=== PATIENT | female | born 1950 | race Caucasian/White ===

== ENCOUNTER 2017-01-11 07:06 | Emergency (ER) | payer MEDICARE, OTHER ==
[2017-01-11] MEDS ORDERED: MAG HYDROX/AL HYDROX/SIMETH 30 ML UDC PO STA (07:45)
[2017-01-11] MEDS ORDERED: LIDOCAINE VISCOUS 2% 15 ML UDC MM STA (07:45)
[2017-01-11] MEDS ORDERED: PHENobarb/HYOSCY/ATROPINE/SCOP 5 ML SYRINGE PO STA (07:46)
[2017-01-11] MEDS ORDERED: MAG HYDROX/AL HYDROX/SIMETH 30 ML UDC ONE (07:51)
[2017-01-11] MEDS ORDERED: PHENobarb/HYOSCY/ATROPINE/SCOP 5 ML SYRINGE PO ONE (07:51)
[2017-01-11] MEDS ORDERED: LIDOCAINE VISCOUS 2% 15 ML UDC MM ONE (07:51)
--- NOTE | 2017-01-11 08:21 | XRAY Preliminary Report ---
Exam: XR Chest 2 View PA/LAT IMPRESSION: 1. There is mild cardiomegaly and thoracic aortic tortuosity. 2. No acute intrathoracic plain film abnormality. [facility] SITE ID: [id number]
--- NOTE | 2017-01-11 08:23 | XRAY Report ---
EXAM: CHEST RADIOGRAPHY EXAM DATE: 01/11/2017 08:00 AM. CLINICAL HISTORY: Mid back pain. COMPARISON: None. TECHNIQUE: 2 views. FINDINGS: Lungs/Pleura: No focal opacities evident. No pleural effusion. No pneumothorax. Normal volumes. Mediastinum: There is mild cardiomegaly and thoracic aortic tortuosity. Other: None. IMPRESSION: 1. There is mild cardiomegaly and thoracic aortic tortuosity. 2. No acute intrathoracic plain film abnormality. [facility] Referring Provider Line: [phone] SITE ID: [id number]
--- NOTE | 2017-01-11 08:44 | ED Physician Documentation ---
PD HPI BACK PAIN - Stated complaint Stated Complaint: BACK PX - Chief complaint Chief Complaint: General - History obtained from History obtained from: Patient - History of Present Illness Timing - duration: Days (3) Timing - details: Waxing and waning Location: Upper, Left Quality: Aching Associated symptoms: No: Fever, Weakness, Numbness Worsened by: Other (Worsened with deep inspiration or supine position.) Similar symptoms before: No diagnosis (She reports history of similar symptoms intermittently for years, but it has been worse the past 3 days.) - Additional information Additional information: The patient is a 66-year-old female who complains of pain in her left upper back , which she has had intermittently for several years, but it has been worse for the past 3 days. It is worse with deep inspiration, with eating, or supine position. She denies any traumatic injury or activity that is different from usual. She denies fever, cough, or chest pain. She reports associated mild shortness of breath and nausea, but denies vomiting. She reports history of gastroesophageal reflux disease for which she takes Prilosec 40 mg twice daily, and states she "lives on [facility]." She is concerned that she might have a hiatal hernia causing her symptoms. Review of Systems Constitutional: denies: Fever Ears: denies: Tinnitus/ringing Nose: denies: Congestion Throat: denies: Sore throat Cardiac: denies: Chest pain / pressure Respiratory: reports: Dyspnea (Occasional mild dyspnea.). denies: Cough GI: reports: Nausea. denies: Abdominal Pain, Vomiting : denies: Dysuria Skin: denies: Rash Musculoskeletal: reports: Back pain (Left upper back, in the subscapular region. ) Neurologic: denies: Focal weakness, Numbness, Headache PD PAST MEDICAL HISTORY - Past Medical History Cardiovascular: None Respiratory: Other Neuro: None Endocrine/Autoimmune: None GI: GERD : None HEENT: Chronic vision loss Psych: Anxiety, Claustrophobia Musculoskeletal: Osteoarthritis Derm: None - Past Surgical History Past Surgical History: Yes Ortho: Carpal Tunnel surgery /[employer]: section HEENT: Tonsil/Adenoidectomy - Present Medications Home Medications: Ambulatory Orders Medication Instructions Recorded Confirmed Fluticasone Propionate [Flonase 1 spray INH DAILY 02/07/15 03/12/15 Allergy Relief] Omeprazole [PriLOSEC] 40 mg PO BID 02/07/15 03/19/15 Aspirin 325 mg PO DAILY 03/12/15 03/12/15 Cholecalciferol (Vitamin D3) 4,000 unit PO DAILY 03/12/15 03/19/15 [Vitamin D] Glucosamine Sulfate Dipot Chlr 1,000 mg PO DAILY 03/12/15 03/19/15 [Glucosamine] L.acidoph,Paracasei, B.lactis 1 each PO DAILY 03/12/15 03/19/15 [Probiotic] Loratadine/Pseudoephedrine 1 tab PO QPM PRN 03/12/15 03/19/15 [Claritin-D 24 Hour Tablet] Multivitamin [Multivitamins] 1 each PO DAILY 03/12/15 03/19/15 Pseudoephedrine [Sudafed] 30 mg PO QPM 03/12/15 03/19/15 Sucralfate [Carafate] 1 gm PO QID #240 ml 01/11/17 - Allergies Allergies/Adverse Reactions: Allergies Allergy/AdvReac Type Severity Reaction Status Date / Time levofloxacin [From Levaquin] Allergy Severe Swelling Verified 01/11/17 07:29 of the throat codeine AdvReac Nausea Verified 01/11/17 07:29 - Social History Does the pt smoke?: No Smoking Status: Never smoker Does the pt drink ETOH?: Yes Does the pt have substance abuse?: No - Immunizations Immunizations are current?: Yes - POLST Patient has POLST: No PD ED PE NORMAL - Vitals Vital signs reviewed: Yes (normal) - General General: Alert and oriented X 3, Well developed/nourished - HEENT HEENT: Atraumatic, EOMI, Pharynx benign - Neck Neck: No bony TTP, No adenopathy, No JVD - Cardiac Cardiac: RRR, No murmur - Respiratory Respiratory: No respiratory distress, Clear bilaterally - Abdomen Abdomen: Soft, Other (Mild epigastric tenderness to palpation, without rebound tenderness or guarding.) - Back Back: No CVA TTP, No spinal TTP, Other (There is no tenderness to palpation of the back including along the spinous processes or the paraspinous musculature.) - Derm Derm: No rash - Extremities Extremities: No tenderness to palpate, Normal ROM s pain, No edema, No calf tenderness / cord, Other (No tenderness to palpation of the shoulder, including the clavicular joints or the scapular aspect of the shoulder. She demonstrates full range of motion without apparent discomfort.) - Neuro Neuro: Alert and oriented X 3, No motor deficit, No sensory deficit Results - Vitals Vitals: Oxygen O2 Source Room air - EKG (time done) 08:05 Rate: Rate (enter#) (53) Rhythm: NSR [place]: Normal Intervals: Normal MI QRS: Normal Ischemia: Normal ST segments Computer interpretation: Agree with computer - Rads (name of study) 2-view CXR Radiology: Prelim report reviewed, EMP read contemporaneously, See rad report ( Mild cardiomegaly and thoracic aortic tortuosity. No acute intrathoracic plain film abnormality.) PD MEDICAL DECISION MAKING - ED course Complexity details: reviewed old records, reviewed results, re-evaluated patient , considered differential, d/w patient, d/w family ED course: The patient's presentation is most consistent with acute exacerbation of gastroesophageal reflux disease. Her presentation does not likely represent cardiac ischemia, and there is no ischemic abnormality on electrocardiogram. Chest x-ray reveals no acute pulmonary abnormality. I doubt pulmonary embolus. Treatment in the emergency department included administration of GI cocktail. This completely relieved the patient's symptoms. I discussed with her and her the likely diagnosis, treatment options and outpatient follow-up, including potential referrals to gastroenterology for upper endoscopy. I also discussed with them potentially worrisome signs or symptoms that should prompt reevaluation in the emergency department. She is being discharged with prescription for sucralfate to use in addition to her currently prescribed Prilosec. Departure - Departure Disposition: 01 Home, Self Care Clinical Impression: GERD (gastroesophageal reflux disease) Qualifiers: Esophagitis presence: esophagitis presence not specified Qualified Code(s): K21.9 - Gastro-esophageal reflux disease without esophagitis Condition: Stable Instructions: ED GERD Follow-Up: Reshma Fuentes PA-C [Primary Care Provider] - Prescriptions: Sucralfate [Carafate] 1 gm PO QID #240 ml Comments: Continue Prilosec as previously prescribed. Take sucralfate 4 times daily as prescribed. Continue liquid antacid if needed for recurrent symptoms. Follow-up with your primary physician this week. Call today to schedule appointment. Discuss potential referral to gastroenterology for upper endoscopy. Return to the emergency department if you develop increasing pain, shortness of breath, or otherwise worsening symptoms. Discharge Date/Time: 01/11/17 08:52
[2017-01-11 08:53] VITALS: BP 137/78
== END 2017-01-11 08:52 | disposition home or self-care (01) ==
LOC: ED 07:06
DX: K21.9 Gastro-esophageal reflux disease without esophagitis (principal); M19.90 Unspecified osteoarthritis, unspecified site; Z79.82 Long term (current) use of aspirin
CPT/HCPCS: 71020; 93005; 99283; A9270

== ENCOUNTER 2017-01-14 18:03 | Emergency (ER) | payer MEDICARE, OTHER ==
[2017-01-14] MEDS ORDERED: MAG HYDROX/AL HYDROX/SIMETH 30 ML UDC PO STA (18:23)
[2017-01-14] MEDS ORDERED: LIDOCAINE VISCOUS 2% 15 ML UDC MM STA (18:23)
[2017-01-14] MEDS ORDERED: PHENobarb/HYOSCY/ATROPINE/SCOP 5 ML SYRINGE PO STA (18:23)
--- NOTE | 2017-01-14 18:24 | ED Physician Documentation ---
PD HPI ABD PAIN - Stated complaint Stated Complaint: ABD/SIDE PX - Chief complaint Chief Complaint: Abd Pain - History obtained from History obtained from: Patient, Family - History of Present Illness Timing - onset: Other (This is a 58-year-old woman who is relatively healthy, history of umbilical hernia repair and 3 C-sections. For as long as she can remember, at least 20 years she has had what she thought was reflux which was controlled by high-dose Prilosec. Earlier this year with her Prilosec was decreased and over the last week has started to have increasing symptoms, she is scared to eat, she has had some pain between her shoulder blades, she feels quite anxious especially at night. She says it is worse after a large meal. She was seen here the other day, there was a concern for cardiac ischemia but her EKG was negative. Despite going back up on her dose of Prilosec she is still symptomatic.) Review of Systems Ten Systems: 10 systems reviewed and negative Constitutional: reports: Weight Loss (3lbs). denies: Fever, Chills Cardiac: denies: Chest pain / pressure, Palpitations Respiratory: denies: Dyspnea, Cough PD PAST MEDICAL HISTORY - Past Medical History Cardiovascular: None Respiratory: Other Neuro: None Endocrine/Autoimmune: None GI: GERD : None HEENT: Chronic vision loss Psych: Anxiety, Claustrophobia Musculoskeletal: Osteoarthritis Derm: None - Past Surgical History Past Surgical History: Yes Ortho: Carpal Tunnel surgery /[employer]: section HEENT: Tonsil/Adenoidectomy - Present Medications Home Medications: Ambulatory Orders Medication Instructions Recorded Confirmed Fluticasone Propionate [Flonase 1 spray INH DAILY 02/07/15 01/14/17 Allergy Relief] Omeprazole [PriLOSEC] 40 mg PO BID 02/07/15 01/14/17 Aspirin 325 mg PO DAILY 03/12/15 01/14/17 Cholecalciferol (Vitamin D3) 4,000 unit PO DAILY 03/12/15 01/14/17 [Vitamin D] Glucosamine Sulfate Dipot Chlr 1,000 mg PO DAILY 03/12/15 01/14/17 [Glucosamine] L.acidoph,Paracasei, B.lactis 1 each PO DAILY 03/12/15 01/14/17 [Probiotic] Loratadine/Pseudoephedrine 1 tab PO QPM PRN 03/12/15 01/14/17 [Claritin-D 24 Hour Tablet] Multivitamin [Multivitamins] 1 each PO DAILY 03/12/15 01/14/17 Pseudoephedrine [Sudafed] 30 mg PO QPM 03/12/15 01/14/17 Sucralfate [Carafate] 1 gm PO QID #240 ml 01/11/17 01/14/17 Lorazepam [Ativan] 1 mg PO TID PRN #15 tablet 01/14/17 - Allergies Allergies/Adverse Reactions: Allergies Allergy/AdvReac Type Severity Reaction Status Date / Time levofloxacin [From Levaquin] Allergy Severe Swelling Verified 01/14/17 18:13 of the throat codeine AdvReac Nausea Verified 01/14/17 18:13 - Social History Does the pt smoke?: No Smoking Status: Never smoker Does the pt drink ETOH?: Yes Does the pt have substance abuse?: No - Immunizations Immunizations are current?: Yes - POLST Patient has POLST: No PD ED PE NORMAL - Vitals Vital signs reviewed: Yes - General General: Alert and oriented X 3, No acute distress - HEENT HEENT: PERRL, EOMI, Pharynx benign - Neck Neck: Supple, no meningeal sign, No bony TTP - Cardiac Cardiac: RRR, No murmur - Respiratory Respiratory: No respiratory distress, Clear bilaterally - Abdomen Abdomen: Other (Soft with hyperactive bowel tones and mild right upper quadrant tenderness with equivocal Stearns sign.) - Back Back: No CVA TTP, No spinal TTP - Derm Derm: Normal color, Warm and dry - Extremities Extremities: No edema, No calf tenderness / cord - Neuro Neuro: Alert and oriented X 3, Normal speech - Psych Psych: Normal mood, Normal affect Results - Vitals Vitals: Vital Signs - 24 hr 01/14/17 18:08 Temperature 36.7 C Heart Rate 69 Respiratory 16 Rate Blood Pressure 121/103 H O2 Saturation 94 Oxygen O2 Source Room air - Labs Labs: Laboratory Tests 01/14/17 01/14/17 01/14/17 18:39 18:39 18:39 WBC 8.7 RBC 4.63 Hgb 13.6 Hct 39.3 MCV 84.9 MCH 29.4 MCHC 34.6 RDW 13.8 Plt Count 256 MPV 7.8 L Neut # 6.3 Lymph # 1.7 [place] # 0.5 Eos # 0.1 Baso # 0.1 Absolute Nucleated RBC 0.00 Nucleated RBCs 0.0 Sodium 134 L Potassium 3.8 Chloride 100 L Carbon Dioxide 25 Anion Gap 9.0 BUN 13 Creatinine 0.5 Estimated GFR (MDRD) 123 Glucose 97 Calcium 9.5 Total Bilirubin 0.5 AST 21 ALT 24 Alkaline Phosphatase 48 Troponin I < 0.04 Total Protein 7.7 Albumin 4.5 Globulin 3.2 Albumin/Globulin Ratio 1.4 Lipase 37 H. pylori IgG Antibody 01/14/17 18:39 WBC RBC Hgb Hct MCV MCH MCHC RDW Plt Count MPV Neut # Lymph # [place] # Eos # Baso # Absolute Nucleated RBC Nucleated RBCs Sodium Potassium Chloride Carbon Dioxide Anion Gap BUN Creatinine Estimated GFR (MDRD) Glucose Calcium Total Bilirubin AST ALT Alkaline Phosphatase Troponin I Total Protein Albumin Globulin Albumin/Globulin Ratio Lipase H. pylori IgG Antibody Negative - Rads (name of study) Abd sono Radiology: EMP read contemporaneously (Gallbladder sludge without evidence of cholecystitis, 1.7 cm mass in the spleen) PD MEDICAL DECISION MAKING - ED course ED course: 66-year-old woman with chronic upper abdominal pain, now worse with a lot of anxiety. Had complete relief with a GI cocktail here so probably not at least completely biliary in origin. She does have gallbladder sludge but no evidence of cholecystitis. Surgical referral recommended for consideration of either HIDA scan and/or upper endoscopy. Departure - Departure Disposition: 01 Home, Self Care Clinical Impression: Abdominal pain Qualifiers: Abdominal location: epigastric Qualified Code(s): R10.13 - Epigastric pain Condition: Good Record reviewed to determine appropriate education?: Yes Instructions: Abdominal Pain Follow-Up: Jose Winters MD [Provider Admit Priv/Credential] - Prescriptions: Lorazepam [Ativan] 1 mg PO TID PRN #15 tablet PRN Reason: Anxiety Comments: Follow-up with Dr. Winters for consultation, likely consideration for upper endoscopy and/or HIDA scan. Return in the interim if worse. Also discussed with him or Dr. michelle the small mass in your spleen which is likely a hemangioma, different imaging or a repeat ultrasound in 6 months would be appropriate. Your blood pressure was elevated today on check into the emergency department. This does not mean that you have hypertension, it is a common phenomenon to come to the emergency department and have elevated blood pressure. I recommend that she see her primary care physician within the week to have it rechecked when you are feeling better.
[2017-01-14] MEDS ORDERED: PHENobarb/HYOSCY/ATROPINE/SCOP 5 ML SYRINGE PO ONE (18:30)
[2017-01-14] MEDS ORDERED: MAG HYDROX/AL HYDROX/SIMETH 30 ML UDC ONE (18:30)
[2017-01-14] MEDS ORDERED: LIDOCAINE VISCOUS 2% 15 ML UDC MM ONE (18:30)
[2017-01-14 18:48] LABS: BASOPHILS # (AUTO) 0.1 10^3/uL (0.0-0.1); BASOPHILS % (AUTO) 0.8 %; EOSINOPHILS # (AUTO) 0.1 10^3/uL (0.0-0.7); EOSINOPHILS % (AUTO) 1.3 %; HCT - HEMATOCRIT 39.3 % (37.0-47.0); HGB - HEMOGLOBIN 13.6 g/dL (12.0-16.0); LYMPHOCYTES # (AUTO) 1.7 10^3/uL (1.5-3.5); MEAN CORPUSCULAR HEMOGLOBIN 29.4 pg (27.0-31.0); MEAN CORPUSCULAR HGB CONC 34.6 g/dL (32.0-36.0); MEAN CORPUSCULAR VOLUME 84.9 fL (81.0-99.0); MEAN PLATELET VOLUME 7.8 fL (7.9-10.8); MONOCYTES # (AUTO) 0.5 10^3/uL (0.0-1.0); MONOCYTES % (AUTO) 5.9 %; NEUTROPHILS # (AUTO) 6.3 10^3/uL (1.5-6.6); RED BLOOD COUNT 4.63 10^6/uL (4.20-5.40); RED CELL DISTRIBUTION WIDTH 13.8 % (12.0-15.0); UNCORRECTED WHITE BLOOD COUNT 8.7 x10^3/uL; WHITE BLOOD COUNT 8.7 x10^3/uL (4.8-10.8)
[2017-01-14 19:00] LABS: ALBUMIN/GLOBULIN RATIO 1.4 (1.0-2.2); BILIRUBIN,TOTAL 0.5 mg/dL (0.2-1.0); CALCIUM 9.5 mg/dL (8.5-10.3); CREATININE 0.5 mg/dL (0.4-1.0); POTASSIUM 3.8 mmol/L (3.5-5.0); TOTAL PROTEIN 7.7 g/dL (6.7-8.2)
[2017-01-14 19:05] LABS: H. PYLORI IGG ANTIBODY Negative (Negative); HPYLORI NEG QC Negative (Negative); HPYLORI POS QC POSITIVE (Positive)
--- NOTE | 2017-01-14 20:23 | Ultrasound Preliminary Report ---
Exam: US Abdomen Complete IMPRESSION: 1. Gallbladder sludge. No sonographic evidence of acute cholecystitis. 2. Indeterminate 1.7 cm focal hyperechoic region in the spleen could represent a hemangioma or a mass . This could be characterized with contrast enhanced CT done on nonemergent basis. 3. Normal liver. [facility] SITE ID: [id number]
[2017-01-14] MEDS ORDERED: LORazepam 0.5 MG TABLET PO STA (20:31)
--- NOTE | 2017-01-14 20:31 | Ultrasound Report ---
EXAM: ABDOMEN ULTRASOUND EXAM DATE: 01/14/2017 08:00 PM. CLINICAL HISTORY: Abdominal pain. COMPARISON: None. TECHNIQUE: Real-time scanning was performed with static images obtained. FINDINGS: Liver: Normal in size and echotexture. 14.1 cm. Main portal vein flow: Hepatopetal. Gallbladder: Sludge. Negative for sonographic Stearns's sign, pericholecystic fluid or gallbladder wal l thickening. Biliary System: Common bile duct measures 5.4 mm. No intrahepatic or extrahepatic ductal dilatation. Pancreas: Echogenic. No focal mass, calcifications or atrophy. Mild prominence of the pancreatic duct noted. Kidneys: Right: 11.6 cm longitudinally. Normal. No contour-deforming mass, stones, or hydronephrosis. Left: 11 cm longitudinally. Normal. No contour-deforming mass, stones, or hydronephrosis. 2.6 x 1.9 x 1.7 cm exophytic mid left renal cyst. Spleen: 9.8 x 4.7 x 7.1 cm. 1.7 cm focal hyperechoic region in the spleen. Aorta and Inferior Vena Cava: Unremarkable. IMPRESSION: 1. Gallbladder sludge. No sonographic evidence of acute cholecystitis. 2. Indeterminate 1.7 cm focal hyperechoic region in the spleen could represent a hemangioma or a mass . This could be characterized with contrast enhanced CT done on a nonemergent basis. 3. Normal liver. [facility] Referring Provider Line: [phone] SITE ID: [id number]
[2017-01-14] MEDS ORDERED: LORazepam 0.5 MG TABLET ONE (20:40)
[2017-01-14 20:44] VITALS: BP 131/86
== END 2017-01-14 20:44 | disposition home or self-care (01) ==
LOC: ED 18:03
DX: R10.13 Epigastric pain (principal); R03.0 Elevated blood-pressure reading, without diagnosis of hypertension; G89.29 Other chronic pain; K21.9 Gastro-esophageal reflux disease without esophagitis; F41.9 Anxiety disorder, unspecified; Z79.899 Other long term (current) drug therapy; Z79.82 Long term (current) use of aspirin
CPT/HCPCS: 36415; 76700; 80053; 83690; 84484; 85025; 87339; 99283; A9270

== ENCOUNTER 2017-02-22 11:42 | Day surgery (SDC) | payer MEDICARE, OTHER ==
[2017-02-22] MEDS ORDERED: LACTATED RINGERS 1,000 ML IV ONE (12:34)
[2017-02-22] MEDS ORDERED: fentaNYL 100 MCG/2 ML VIAL IVP ONE (13:27)
[2017-02-22] MEDS ORDERED: MIDAZOLAM 2 MG/2 ML VIAL IVP ONE (13:27)
[2017-02-22] MEDS ORDERED: BENZOCAINE/TETRACAINE/BUTAMBEN SPRAY 56 GM TOP ONE (13:31)
[2017-02-22] MEDS ORDERED: LIDO GARGLE 30 ML BOTTLE PO ONE (13:32)
[2017-02-22 14:30] VITALS: BP 127/51
== END 2017-02-22 11:43 | disposition home or self-care (01) ==
LOC: SDS 11:42
PROVIDERS: ATTEND Surgery
PROC: 0DB48ZX Excision of Esophagogastric Junction, Via Natural or Artificial Opening Endoscopic, Diagnostic (ICD-10-PCS; principal; 2017-02-22 12:45)
DX: K21.0 Gastro-esophageal reflux disease with esophagitis (principal); J45.909 Unspecified asthma, uncomplicated; E78.00 Pure hypercholesterolemia, unspecified; Z79.82 Long term (current) use of aspirin; Z87.891 Personal history of nicotine dependence
CPT/HCPCS: 43239; A9270; J7120

== ENCOUNTER 2017-09-23 09:00 | Outpatient (CLI) | payer MEDICARE, OTHER ==
[2017-09-23 12:45] LABS: BASOPHILS # (AUTO) 0.1 10^3/uL (0.0-0.1); EOSINOPHILS # (AUTO) 0.1 10^3/uL (0.0-0.7); EOSINOPHILS % (AUTO) 3.1 %; LYMPHOCYTES # (AUTO) 1.3 10^3/uL (1.5-3.5); LYMPHOCYTES % (AUTO) 39.3 %; MEAN CORPUSCULAR HEMOGLOBIN 25.3 pg (27.0-31.0); MEAN CORPUSCULAR HGB CONC 33.1 g/dL (32.0-36.0); MEAN CORPUSCULAR VOLUME 76.5 fL (81.0-99.0); MEAN PLATELET VOLUME 8.2 fL (7.9-10.8); MONOCYTES # (AUTO) 0.4 10^3/uL (0.0-1.0); MONOCYTES % (AUTO) 11.1 %; NEUTROPHILS # (AUTO) 1.5 10^3/uL (1.5-6.6); NEUTROPHILS % (AUTO) 44.5 %; PLT - PLATELET COUNT 267 10^3/uL (130-450); RED BLOOD COUNT 4.33 10^6/uL (4.20-5.40); RED CELL DISTRIBUTION WIDTH 18.9 % (12.0-15.0); WHITE BLOOD COUNT 3.3 x10^3/uL (4.8-10.8)
[2017-09-23 13:00] LABS: ALBUMIN 4.4 g/dL (3.2-5.5); ALBUMIN/GLOBULIN RATIO 1.8 (1.0-2.2); ALKALINE PHOSPHATASE 42 IU/L (42-121); ALT ALANINE AMINOTRANSFERASE 23 IU/L (10-60); AST ASPARTATE AMINOTRANSFERASE 23 IU/L (10-42); BILIRUBIN,TOTAL 0.2 mg/dL (0.2-1.0); BUN - BLOOD UREA NITROGEN 10 mg/dL (6-20); CARBON DIOXIDE - CO2 26 mmol/L (21-32); CHLORIDE 95 mmol/L (101-111); CHOL/HDL RATIO 4.5 (<4.4); CHOLESTEROL 225 mg/dL; CREATININE 0.6 mg/dL (0.4-1.0); GFR - MDRD 99 (>89); GLUCOSE 85 mg/dL (70-100); HDL CHOLESTEROL 50 mg/dL; LDL CHOLESTEROL,CALCULATED 151 mg/dL; SODIUM 129 mmol/L (135-145); TOTAL PROTEIN 6.9 g/dL (6.7-8.2); VLDL CHOLESTEROL 24 mg/dL
[2017-09-24 08:25] LABS: HEPATITIS C ANTIBODY NON-REACTIVE (NON-REACTIVE)
== END 2017-09-23 09:01 | disposition home or self-care (01) ==
LOC: LAB.R 09:00
PROVIDERS: ATTEND Physician Assistant Medical
DX: K21.9 Gastro-esophageal reflux disease without esophagitis (principal); E78.5 Hyperlipidemia, unspecified; Z13.818 Encounter for screening for other digestive system disorders; Z79.899 Other long term (current) drug therapy
CPT/HCPCS: 80053; 80061; 83721; 84443; 85025; 86803

== ENCOUNTER 2017-09-30 08:10 | Outpatient (CLI) | payer MEDICARE, OTHER ==
[2017-09-30 15:02] LABS: MEAN RETIC VALUE 111.1; RED BLOOD COUNT 4.51 10^6/uL (4.20-5.40)
[2017-09-30 15:38] LABS: FERRITIN 10.6 ng/mL (11.0-306.8)
== END 2017-09-30 08:11 | disposition home or self-care (01) ==
LOC: LAB.R 08:10
PROVIDERS: ATTEND Physician Assistant Medical
DX: E87.1 Hypo-osmolality and hyponatremia (principal); D50.8 Other iron deficiency anemias
CPT/HCPCS: 82607; 82728; 83010; 84295; 85044; 86880

== ENCOUNTER 2017-10-12 06:08 | Day surgery (SDC) | payer MEDICARE, OTHER ==
[2017-10-12] MEDS ORDERED: LACTATED RINGERS 1,000 ML IV ONE (06:28)
[2017-10-12] MEDS ORDERED: ceFAZolin 2 GM/50 ML 2 GM/50 ML BAG IV ONE (06:38)
[2017-10-12] MEDS ORDERED: BUPIVACAINE 0.5% PF 30 ML VIAL ONE (07:28)
[2017-10-12] MEDS ORDERED: BUPIVACAINE 0.5% PF 30 ML VIAL INFIL ONE ×2 (08:21)
[2017-10-12] MEDS ORDERED: ePHEDrine 50 MG/ML VIAL IVP ONE (08:30)
[2017-10-12] MEDS ORDERED: PROPOFOL 200 MG/20 ML VIAL IVP ONE (08:30)
[2017-10-12] MEDS ORDERED: ONDANSETRON 4 MG/2 ML VIAL IVP ONE (08:30)
[2017-10-12] MEDS ORDERED: MIDAZOLAM 2 MG/2 ML VIAL IVP ONE (08:30)
[2017-10-12] MEDS ORDERED: DEXAMETHASONE 4 MG/ML VIAL IVP ONE (08:30)
[2017-10-12] MEDS ORDERED: LIDOCAINE-MPF 2% 5 ML VIAL IM ONE (08:30)
[2017-10-12] MEDS ORDERED: fentaNYL 100 MCG/2 ML VIAL IVP ONE (08:30)
[2017-10-12] MEDS ORDERED: KETOROLAC 30 MG/ML VIAL IVP ONE (08:30)
--- NOTE | 2017-10-12 09:57 | OPERATIVE REPORT ---
Operative Report - General Procedure Date: 10/12/17 Planned Procedure: Incisional herniorrhaphy Pre-Op Diagnosis: Incisional hernia (just above the umbilicus) Procedure Performed: Recurrent incisional and umbilical herniorrhaphy using mesh Explantation old mesh (meshoma) Post Op Diagnosis: Meshoma resulting in resurrent incisional hernia, umbilical hernia - Procedure Note Primary Surgeon: Jose Winters MD Anesthesia Provider: David Hogan CRNA Anesthesia Technique: General LMA, Local (30 mL 1/2% marcaine) IV Fluids (mL): 700 Estimated Blood Loss (mL): 10 Complications: None. - Other Other Information/Narrative: OPERATIVE DESCRIPTION/REPORT: After verbal and written informed consent was obtained detailing the risks of infection, bleeding requiring transfusion with its risks, nerve injury, and , and after I met with the patient confirming the surgery and the site of the surgery, the patient was brought to the operative suite and placed supine on the operating table. Great care was taken to avoid pressure points to prevent pressure necrosis or nerve injury. Monitoring devices were applied along with TEDs and pneumatic compressive stockings (to prevent DVT). The patient received preoperative antibiotics for surgical prophylaxis. David Hogan sedated and anesthetized the patient for the entire procedure. The patient was prepped and draped in the usual sterile manner. With the patient draped my initials were clearly visible. A "time in" then confirmed that the patient was identified with 3 identifiers (name, date and medical record number), the history and physical was in the chart, the signed consent confirming the procedure was in the chart, the patient was in the correct position, the aforementioned prophylactic measures were in place or given, we had the correct personnel and equipment to complete the procedure and that anesthesia, surgery and nursing were given an opportunity to express any concerns. With the agreement of everyone in the room, we proceeded with the operation. A vertical midline incision was made overlying the mass tracing the upper aspect of the previous incision and dissection was carried down to what I felt to be the hernia sac using mostly Bovie electrocautery. It became very clear that instead of a hernia sac, the mesh had become a ball of mesh or "meshoma." There was no way that I could leave this mesh in place as it was the cause of the patient's symptoms and not doing any good. The mesh was completely excised , it from the underlying adherent tissue using Bovie electrocautery. The fascial defect was delineated. Digital examination revealed a small umbilical hernia as well and the small fascial bridge between the two hernias was incised using Bovie electrocautery in order to make one large hernia to be fixed with the mesh. The fascia was cleared of any adherent tissue for a distance 1.5 cm from the defect. The defect was closed using a Ventralex ST hernia patch (Ref#[id number], Lot#[id number], use by 2019-06-20) sewing it in place using the straps and 2-0 Prolene. This was then secured to the fascia at the 12 and 6 o'clock position again using the 2-0 Prolene. The fascia was then closed over the mesh for additional security using 2-0 PDS figure-8 sutures. The subcutaneous tissues were copiously irrigated, and then closed using an interrupted 2-0 Vicryl. The fascia, subcutaneous tissues, and skin were injected using 1/2% marcaine for pain control. Meticulous hemostasis was obtained using Bovie electrocautery. The skin incision was approximated with a running 4-0 Monocryl. At this point a time out was performed that confirmed that all the counts were correct, the procedure that was performed, the blood loss, the IV fluids administered, and the patient s condition. Having tolerated the procedure well, the patient was subsequently extubated and taken to recovery room in good and stable condition.
[2017-10-12 10:43] VITALS: BP 129/60
== END 2017-10-12 06:09 | disposition home or self-care (01) ==
LOC: SDS 06:08
PROVIDERS: ATTEND Surgery
PROC: 0WUF0JZ Supplement Abdominal Wall with Synthetic Substitute, Open Approach (ICD-10-PCS; principal; 2017-10-12 07:30)
DX: K42.9 Umbilical hernia without obstruction or gangrene (principal); K43.2 Incisional hernia without obstruction or gangrene; T88.8XXA Other specified complications of surgical and medical care, not elsewhere classified, initial encounter; E78.00 Pure hypercholesterolemia, unspecified; Z79.82 Long term (current) use of aspirin; K21.9 Gastro-esophageal reflux disease without esophagitis; Z87.891 Personal history of nicotine dependence
CPT/HCPCS: 49565; 49568; C1781; J0690; J7120

== ENCOUNTER 2017-12-07 08:23 | Outpatient (CLI) | payer MEDICARE, OTHER ==
[2017-12-07 12:59] LABS: BASOPHILS # (AUTO) 0.1 10^3/uL (0.0-0.1); BASOPHILS % (AUTO) 1.3 %; EOSINOPHILS # (AUTO) 0.3 10^3/uL (0.0-0.7); HGB - HEMOGLOBIN 11.7 g/dL (12.0-16.0); LYMPHOCYTES # (AUTO) 1.5 10^3/uL (1.5-3.5); LYMPHOCYTES % (AUTO) 33.2 %; MEAN CORPUSCULAR HEMOGLOBIN 27.4 pg (27.0-31.0); MEAN CORPUSCULAR HGB CONC 33.2 g/dL (32.0-36.0); MEAN CORPUSCULAR VOLUME 82.7 fL (81.0-99.0); MEAN PLATELET VOLUME 8.2 fL (7.9-10.8); MONOCYTES # (AUTO) 0.4 10^3/uL (0.0-1.0); NEUTROPHILS # (AUTO) 2.2 10^3/uL (1.5-6.6); NEUTROPHILS % (AUTO) 49.5 %; PLT - PLATELET COUNT 254 10^3/uL (130-450); RED BLOOD COUNT 4.25 10^6/uL (4.20-5.40); RED CELL DISTRIBUTION WIDTH 19.6 % (12.0-15.0); WHITE BLOOD COUNT 4.4 x10^3/uL (4.8-10.8)
== END 2017-12-07 08:24 | disposition home or self-care (01) ==
LOC: LAB.R 08:23
PROVIDERS: ATTEND Physician Assistant Medical
DX: D50.9 Iron deficiency anemia, unspecified (principal)
CPT/HCPCS: 82728; 85025

== ENCOUNTER 2018-03-04 08:00 | Outpatient (CLI) | payer MEDICARE, OTHER ==
[2018-03-04 17:22] LABS: BASOPHILS % (AUTO) 1.4 %; EOSINOPHILS # (AUTO) 0.2 10^3/uL (0.0-0.7); EOSINOPHILS % (AUTO) 5.7 %; HGB - HEMOGLOBIN 12.7 g/dL (12.0-16.0); LYMPHOCYTES # (AUTO) 1.3 10^3/uL (1.5-3.5); LYMPHOCYTES % (AUTO) 36.8 %; MEAN CORPUSCULAR HEMOGLOBIN 28.5 pg (27.0-31.0); MEAN CORPUSCULAR HGB CONC 33.5 g/dL (32.0-36.0); MEAN CORPUSCULAR VOLUME 85.1 fL (81.0-99.0); MEAN PLATELET VOLUME 8.5 fL (7.9-10.8); MONOCYTES # (AUTO) 0.3 10^3/uL (0.0-1.0); NEUTROPHILS # (AUTO) 1.7 10^3/uL (1.5-6.6); NEUTROPHILS % (AUTO) 48.1 %; PLT - PLATELET COUNT 234 10^3/uL (130-450); RED BLOOD COUNT 4.45 10^6/uL (4.20-5.40); RED CELL DISTRIBUTION WIDTH 15.7 % (12.0-15.0); WHITE BLOOD COUNT 3.4 x10^3/uL (4.8-10.8)
== END 2018-03-04 08:01 | disposition home or self-care (01) ==
LOC: LAB.R 08:00
PROVIDERS: ATTEND Physician Assistant Medical
DX: D50.8 Other iron deficiency anemias (principal); Z79.899 Other long term (current) drug therapy
CPT/HCPCS: 82728; 85025

== ENCOUNTER 2018-06-10 08:00 | Outpatient (CLI) | payer MEDICARE, OTHER ==
[2018-06-10 11:26] LABS: BASOPHILS % (AUTO) 1.3 %; EOSINOPHILS # (AUTO) 0.2 10^3/uL (0.0-0.7); EOSINOPHILS % (AUTO) 6.5 %; HGB - HEMOGLOBIN 12.9 g/dL (12.0-16.0); LYMPHOCYTES # (AUTO) 1.4 10^3/uL (1.5-3.5); LYMPHOCYTES % (AUTO) 38.2 %; MEAN CORPUSCULAR HEMOGLOBIN 29.1 pg (27.0-31.0); MEAN CORPUSCULAR HGB CONC 33.7 g/dL (32.0-36.0); MEAN CORPUSCULAR VOLUME 86.5 fL (81.0-99.0); MEAN PLATELET VOLUME 8.1 fL (7.9-10.8); MONOCYTES # (AUTO) 0.3 10^3/uL (0.0-1.0); MONOCYTES % (AUTO) 8.3 %; NEUTROPHILS # (AUTO) 1.7 10^3/uL (1.5-6.6); NEUTROPHILS % (AUTO) 45.7 %; PLT - PLATELET COUNT 209 10^3/uL (130-450); RED BLOOD COUNT 4.44 10^6/uL (4.20-5.40); RED CELL DISTRIBUTION WIDTH 14.9 % (12.0-15.0); WHITE BLOOD COUNT 3.8 x10^3/uL (4.8-10.8)
== END 2018-06-10 23:59 | disposition home or self-care (01) ==
LOC: LAB.R 08:00
PROVIDERS: ATTEND Physician Assistant Medical
DX: D50.9 Iron deficiency anemia, unspecified (principal)
CPT/HCPCS: 82728; 85025

== ENCOUNTER 2020-06-21 09:44 | Outpatient (CLI) | payer MEDICARE, OTHER ==
[2020-06-21] MEDS ORDERED: IOPAMIDOL-300 50 ML VIAL ONE (10:07)
[2020-06-21] MEDS ORDERED: IOVERSOL 320 100 ML VIAL IVP ONE ×2 (10:07→12:05)
[2020-06-21 10:25] LABS: CREATININE 0.5 mg/dL (0.4-1.0)
--- NOTE | 2020-06-21 11:25 | CT Report ---
PROCEDURE: Abdomen/Pelvis W INDICATIONS: ABD PAIN CONTRAST: IV CONTRAST: Optiray 320 ml: 100 PO CONTRAST: Isovue 300 ml50 TECHNIQUE: After the administration of IV and oral contrast, 5 mm thick sections acquired from the diaphragms to the symphysis. 5 mm thick coronal and sagittal reformats were acquired. For radiation dose reducti on, the following was used: automated exposure control, adjustment of mA and/or kV according to kieran ent size. COMPARISON: None. FINDINGS: Image quality: Excellent. ABDOMEN: Lung bases: Mild dependent bibasilar scarring. There is a fat-containing right posterior medial fat- containing hemidiaphragmatic hernia measuring 20 mm. Lung bases are otherwise clear. Heart size is m ildly enlarged. Solid organs: Liver and spleen are normal in size. Hepatic enhancement is within normal limits. Ther e are a few low-density foci within the mid and superior aspect of the spleen, the largest of which i s in the medial aspect of the mid spleen measuring 10 mm. Gallbladder is within normal limits Biliar y system is non dilated. Pancreas enhances normally. No adrenal nodules. Bilateral renal cysts are present, largest of which is a partially exophytic cyst arising from the left interpolar/inferior hailey e kidney, measuring roughly 25 mm. Kidneys demonstrate otherwise normal size and enhancement, without hydronephrosis. Peritoneum and bowel: Bowel loops demonstrate normal wall thickness and caliber. Normal appendix. N o free fluid or air. Nodes and vessels: No retroperitoneal or mesenteric adenopathy by size criteria. Aorta and inferior vena cava are normal in size. Miscellaneous: No ventral hernias. PELVIS: Genitourinary: Bladder wall thickness is normal. Miscellaneous: No inguinal hernias or adenopathy. Bones: No suspicious bony lesions. No vertebral body compression fractures. Multilevel disc and fa cet disease within the lumbosacral spine is present. There appears to be significant foraminal stenos is at L3-L4 and L4-L5. IMPRESSION: 1. No acute process. 2. Normal appendix. 3. Disc and facet disease within the lumbosacral spine associated with probable foraminal stenoses as described above. This could be further assessed with noncontrast lumbar spine MRI, if clinically ind icated. Reviewed by: Kristin Huang MD on 06/21/2020 11:24 AM PST Approved by: Kristin Hunag MD on 06/21/2020 11:24 AM [facility] Station ID: [id number]
[2020-06-21] MEDS ORDERED: IOPAMIDOL-300 50 ML VIAL PO ONE (12:06)
== END 2020-06-21 09:45 | disposition home or self-care (01) ==
LOC: DI 09:44
PROVIDERS: ATTEND Surgery
DX: M47.817 Spondylosis without myelopathy or radiculopathy, lumbosacral region (principal); M51.37 Other intervertebral disc degeneration, lumbosacral region; R10.9 Unspecified abdominal pain
CPT/HCPCS: 36415; 74177; 82565; Q9967

== ENCOUNTER 2020-07-17 08:00 | Outpatient (CLI) | payer MEDICARE, OTHER ==
[2020-07-17 11:51] LABS: BASOPHILS # (AUTO) 0.1 10^3/uL (0.0-0.1); BASOPHILS % (AUTO) 1.4 %; EOSINOPHILS # (AUTO) 0.1 10^3/uL (0.0-0.7); EOSINOPHILS % (AUTO) 1.6 %; HGB - HEMOGLOBIN 13.4 g/dL (12.0-16.0); LYMPHOCYTES # (AUTO) 1.2 10^3/uL (1.5-3.5); LYMPHOCYTES % (AUTO) 27.7 %; MEAN CORPUSCULAR HEMOGLOBIN 29.4 pg (27.0-31.0); MEAN CORPUSCULAR HGB CONC 31.9 g/dL (32.0-36.0); MEAN CORPUSCULAR VOLUME 92.1 fL (81.0-99.0); MEAN PLATELET VOLUME 10.7 fL (7.9-10.8); MONOCYTES # (AUTO) 0.4 10^3/uL (0.0-1.0); MONOCYTES % (AUTO) 8.2 %; NEUTROPHILS # (AUTO) 2.7 10^3/uL (1.5-6.6); NEUTROPHILS % (AUTO) 60.9 %; PLT - PLATELET COUNT 252 10^3/uL (130-450); RED BLOOD COUNT 4.56 10^6/uL (4.20-5.40); RED CELL DISTRIBUTION WIDTH 13.9 % (12.0-15.0); WHITE BLOOD COUNT 4.4 x10^3/uL (4.8-10.8)
[2020-07-17 13:46] LABS: ALBUMIN 4.7 g/dL (3.2-5.5); ALBUMIN/GLOBULIN RATIO 1.7 (1.0-2.2); ALKALINE PHOSPHATASE 46 IU/L (42-121); ALT ALANINE AMINOTRANSFERASE 15 IU/L (10-60); AST ASPARTATE AMINOTRANSFERASE 16 IU/L (10-42); BILIRUBIN,TOTAL 0.7 mg/dL (0.2-1.0); BUN - BLOOD UREA NITROGEN 12 mg/dL (6-20); CALCIUM 9.7 mg/dL (8.5-10.3); CARBON DIOXIDE - CO2 25 mmol/L (21-32); CHLORIDE 97 mmol/L (101-111); CHOLESTEROL 255 mg/dL; CREATININE 0.5 mg/dL (0.4-1.0); GLUCOSE 92 mg/dL (70-100); HDL CHOLESTEROL 63 mg/dL; LDL CHOLESTEROL,CALCULATED 178 mg/dL; LDL/HDL RATIO 2.8 (<4.4); TOTAL PROTEIN 7.4 g/dL (6.7-8.2); VLDL CHOLESTEROL 14 mg/dL
== END 2020-07-17 23:59 | disposition home or self-care (01) ==
LOC: LAB.WCP 08:00
PROVIDERS: ATTEND Family Medicine
DX: E78.2 Mixed hyperlipidemia (principal); D50.8 Other iron deficiency anemias; K21.9 Gastro-esophageal reflux disease without esophagitis; R53.83 Other fatigue
CPT/HCPCS: 36415; 80053; 80061; 83721; 84443; 85025

== ENCOUNTER 2023-10-04 11:08 | Outpatient (CLI) | payer MEDICARE, OTHER ==
--- NOTE | 2023-10-05 08:55 | Mammography Report ---
BILATERAL DIGITAL SCREENING MAMMOGRAM 3D/2D: 10/04/2023 CLINICAL: Routine screening. Comparison is made to exams dated: 04/05/2019 mammogram and 12/17/2014 mammogram - [facility]. Both breasts are almost entirely fatty (category a/<25% glandular tissue). No significant masses, calcifications, or other findings are seen in either breast. There has been no significant interval change. IMPRESSION: NEGATIVE There is no mammographic evidence of malignancy. A 1 year screening mammogram is recommended. Based on the Tyrer Cuzick model (a risk assessment model) the patient's lifetime risk is 3.2% and her 10 year risk is 2.9%. According to the ACR, ACS, and NCCN guidelines, an annual breast MRI exam irene g with mammogram is recommended if the patient's lifetime risk is 20% or greater. This exam was interpreted at Station ID: [id number]. NOTE: For mammograms, a report in lay terms will be sent to the patient. Approximately 15% of breast malignancies will not be visualized mammographically. In the management of a palpable breast mass, a negative mammogram must not discourage biopsy of a clinically suspicious lesion. Electronically Signed By: Nilson estrada/katelynn:10/04/2023 12:17:09 letter sent: No_Letter ACR BI-RADS Category 1: Negative 3341F PARENCHYMAL PATTERN: (F) - The breast(s) demonstrate(s) diffuse fatty replacement. BI-RADS CATEGORY: (1) - 1 RECOMMENDATION: (ANNUAL) - Recommend routine annual screening mammography. [id number] 1 year screening LATERALITY: (B)
== END 2023-10-04 11:09 | disposition home or self-care (01) ==
LOC: DI 11:08
PROVIDERS: ATTEND Internal Medicine
DX: Z12.31 Encounter for screening mammogram for malignant neoplasm of breast (principal)